=== PATIENT | female | born 1965 | race Caucasian/White ===

== ENCOUNTER 2018-11-07 06:27 | Day surgery (SDC) | payer OTHER ==
[~2018-11-07 06:27] MED LIST: ALTACE2.5 MG PO; GRALISE600 MG PO; METFORMIN HCL500 MG PO; TOPROL XL25 M1 PO; ZOCOR40 MG PO
== END 2018-11-07 14:00 | disposition home or self-care (01) ==
LOC: CIR.AMB 06:27
DX: M47.896 Other spondylosis, lumbar region (principal)